=== PATIENT | female | born 2000 | race African-American/Black ===

== ENCOUNTER 2018-10-09 10:08 | Outpatient (CLI) | payer OTHER ==
--- NOTE | 2018-10-09 14:05 | ULT ---
OB ULTRASOUND: HISTORY: anatomy, cervical length. FINDINGS: A single live intrauterine gestation is seen with measurements corresponding to an estimated gestatio nal age of 20 weeks 3 days and WES at 02/23/2019. The estimated weight measures 355 gm or 13 o unces. This corresponds to the 25th percentile by Hadlock criteria. measurements are as follows: BPD 4.77 cm, 20 weeks 3 days HC 18.16 cm, 20 weeks 4 days AC 15.23 cm, 20 weeks 3 days FL 3.34 cm, 20 weeks 3 days heart rate measures 150 b.p.m. Placenta is posteriorly located without evidence of placenta pr evia. CECILIA measures 11.9 cm. There are dilated vessels of the inferior portion of the placenta. The cervical length measures 4.9 cm. A 3-vessel cord, cord insertion, kidneys, bladder, stomach, 4-chamber heart, lateral ventricles , cerebellum, spine, lips/nose, upper and lower extremities are visualized. No definite anomal ies are seen. IMPRESSION: Single live intrauterine of 20 weeks 3 days estimated gestational age and estimated date of delivery at 02/23/2019. POS: SAIRA
== END 2018-10-09 10:09 | disposition home or self-care (01) ==
LOC: SCSULT 10:08
PROVIDERS: ATTEND Family Medicine
DX: Z34.82 Encounter for supervision of other normal pregnancy, second trimester (principal); Z3A.20 20 weeks gestation of pregnancy
CPT/HCPCS: 76805

== ENCOUNTER 2018-12-12 20:07 | Day surgery (SDC) | payer OTHER ==
[2018-12-12 21:20] LABS: Bacteria/HPF 3+ HPF (None Seen); Bilirubin Negative (Negative); Blood, Urine Trace (Negative); Clarity Clear (Clear); Glucose, Urine (Dipstick) Greater than 1000 mg/dL (Negative); Leukocyte 250 Leu/uL (Negative); Nitrite Negative (Negative); Protein, Urine (Dipstick) Negative (Neg-Trace); RBC/HPF 0-3 HPF (0-3); Squamous Epithelial 0-3 HPF (0-3); Urobilinogen Normal mg/dL (Less than 2); WBC/HPF 21-50 HPF (0-3)
[2018-12-12 21:37] LABS: FFN Internal QC Analyzer PASS (PASS); FFN Internal QC Cassette PASS (PASS); Fetal Fibronectin Negative (Negative)
[2018-12-12] MEDS ORDERED: ceFAZolin 1 GM/D5W 1 GM in Premix Bag 1 BAG IVPB SCH (22:00)
[2018-12-12] MEDS ORDERED: Lactated Ringer's 1,000 ML IV SCH (23:45)
--- NOTE | 2018-12-13 03:19 | SS ---
DATE OF ADMISSION: 12/12/2018 DATE OF DISCHARGE: 12/13/2018 REGULAR PHYSICIAN: Rigoberto Browning MD EVALUATING PHYSICIAN: Neto Noble MD CHIEF COMPLAINT: Transfer from [facility], back pain. HISTORY OF PRESENT ILLNESS: Ms. Brand is a 18-year-old black G2, P1-0-0-1 with an estimated date of confinement of 02/23/2019, who presents complaining of back pain for the last 24 hours, as well as additional urinary frequency and urgency. She denies bleeding, rupture of membranes, fever, or chills. Her care has been with Dr. Browning and has been reportedly uncomplicated. PAST OBSTETRICAL HISTORY: Includes one vaginal delivery at term. PAST MEDICAL HISTORY: Frequent UTIs. PAST SURGICAL HISTORY: None. CURRENT MEDICATIONS: vitamins. ALLERGIES: NO KNOWN ALLERGIES. SOCIAL HISTORY: Denies tobacco, alcohol, or drug use. FAMILY HISTORY: Unremarkable. REVIEW OF SYSTEMS: Denies nausea, vomiting, fever, chills, rupture of membranes, or vaginal bleeding. PHYSICAL EXAMINATION: VITAL SIGNS: In triage, her vital signs are stable and she is afebrile. GENERAL: She is pleasant. She is in no acute distress. ABDOMEN: Soft, nontender, and gravid. heart rate tracing is stable. Initially, uterine irritability seen. LABORATORY DATA: fibronectin is negative. Urinalysis shows a specific gravity of 1.009 with 1+ ketones, trace blood, 250 leukocyte esterase. Microscopic shows 0-3 rbc's, 21-50 wbc's with 0-3 squamous cells, and 3+ bacteria. The patient is hydrated with 2 L of lactated Ringer's. She has also been given 1 g of Ancef IV. At the conclusion of this, she had no further irritability and felt much better. ASSESSMENT: 1. 29 and 4/7th week intrauterine . 2. No evidence of labor. 3. Urinary tract infection. PLAN: The patient will be discharged to home. She has no evidence of pyelonephritis at this time. She was given a prescription for Keflex 500 mg one p.o. q.i.d. for 7 days #28 total. She was given complete precautions and states that she has a followup appointment with Dr. Browning within the next 2 weeks. Job ID: [id number]
== END 2018-12-13 01:44 | disposition home or self-care (01) ==
LOC: L&D/OP 20:07
PROVIDERS: ATTEND Family Medicine
DX: O23.43 Unspecified infection of urinary tract in pregnancy, third trimester (principal); B96.1 Klebsiella pneumoniae [K. pneumoniae] as the cause of diseases classified elsewhere; Z3A.29 29 weeks gestation of pregnancy
CPT/HCPCS: 81003; 81015; 82731; 87077; 87086; 87186; 96361; 96365; 99285; J0690

== ENCOUNTER 2019-01-15 20:17 | Day surgery (SDC) | payer OTHER ==
[2019-01-15] MEDS ORDERED: hydrALAZINE 20 MG/ML VIAL SLOW IVP PRN (20:55)
[2019-01-15 21:02] VITALS: BP 109/66; TEMP 98.2; BMI 17.4
[2019-01-15 21:28] LABS: Amnisure Test No Membranes Rupture (No Rupture)
[2019-01-15 21:29] LABS: Amnisure Internal Control QC ACCEPTABLE (ACCEPTABLE)
--- NOTE | 2019-01-16 06:00 | SS ---
DATE OF ADMISSION: 01/15/2019 DATE OF DISCHARGE: 01/15/2019 REGULAR PHYSICIAN: Rigoberto Browning MD EVALUATING PHYSICIAN: Neto Noble MD CHIEF COMPLAINT: Pelvic pressure, possible leakage of fluid. HISTORY OF PRESENT ILLNESS: Ms. Brand is a 18-year-old black G2, P1-0-0-1 with an estimated date of confinement of 02/20/2016, who presents complaining of 24-hour history of pelvic pressure and she also thinks she maybe leaking some fluid. She was seen in Dr. Browning's office today and was told that she was not dilated, but that her cervix was thinner. She had similar complaints when she was seen with him today. PAST OBSTETRICAL HISTORY: Includes one vaginal delivery at term, reportedly uncomplicated. PAST MEDICAL HISTORY: None. PAST SURGICAL HISTORY: None. CURRENT MEDICATIONS: vitamins. ALLERGIES: NO KNOWN ALLERGIES. SOCIAL HISTORY: Denies tobacco, alcohol, or drug use. FAMILY HISTORY: Unremarkable. REVIEW OF SYSTEMS: Denies nausea, vomiting, fever, chills, vaginal bleeding, or decreased movement. PHYSICAL EXAMINATION: VITAL SIGNS: Blood pressure is 109/66, pulse is 88. She is afebrile. GENERAL: She is pleasant, in no distress. ABDOMEN: Soft, nontender, and gravid. AmniSure is obtained and it returns negative. heart rate tracing is reassuring with no decelerations. No regular contractions were seen. Pelvic exam shows the cervix to be closed, posterior, and approximately 60% to 70% effaced. The vertex is presenting. No fluid or discharge is noted. ASSESSMENT: 1. Thirty-four week intrauterine . 2. No evidence of ruptured membranes or labor. PLAN: The patient will be dismissed to home with labor precautions. These were reviewed with her in detail. She voiced understanding of these and her discharge instructions, and was sent home in good condition. Job ID: [id number]
== END 2019-01-15 21:45 | disposition home or self-care (01) ==
LOC: L&D/OP 20:17
PROVIDERS: ATTEND Family Medicine
DX: O99.89 Other specified diseases and conditions complicating pregnancy, childbirth and the puerperium (principal); R10.2 Pelvic and perineal pain; Z3A.34 34 weeks gestation of pregnancy
CPT/HCPCS: 84112; 99283

== ENCOUNTER 2019-02-06 02:29 | Inpatient (IN) | payer OTHER ==
[2019-02-06 03:06] VITALS: BMI 18.3
[2019-02-06] MEDS ORDERED: hydrALAZINE 20 MG/ML VIAL SLOW IVP PRN ×3 (03:31→10:24)
--- NOTE | 2019-02-06 03:34 | PDOC.LDHP ---
Labor and Delivery H&P HPI: Patient of Dr Browning Seen at bedside at 0340 18 yo with CTX. No LOF, no VB, good FM. Denies issues. Review of Systems: comlete ROS performed and as per HPI Current gestational age (weeks): 38 (1 Day) Due date: 02/20/19 Grav: 2 Para: 1 OB History Details: Term in 2016 Current complications: none Abnormal US findings: No Current medications: none Allergies/Adverse Reactions: Allergies Allergy/AdvReac Type Severity Reaction Status Date / Time No Known Allergies Allergy Verified 01/15/19 20:55 Social history: none - Physical Exam Vital signs reviewed and normal: yes (113/78) General: NAD Heart: RRR Lungs: CTAB Abdomen: gravid Extremeties: no edema FHT: category 1 (one isolated small variable noted (X1)) [place] contractions every: 2 CTX in 15 minutes - Vaginal Exam cm dilated: 3 Effacement: 75% Station: -2 - Assessment Latent labor at early term, states GBS neg - Plan Plan: observation in L&D (we will recheck in 2 hrs; continue monitors)
[2019-02-06] MEDS ORDERED: HYDROcodone/Acetaminophen 5/325 mg Tablet PO PRN ×4 (04:43→10:24)
[2019-02-06] MEDS ORDERED: NS / Oxytocin 40 units/1000ml 1,000 ML IV PRN (04:43)
[2019-02-06] MEDS ORDERED: Ondansetron PF 4 MG/2 ML Vial IVP PRN ×3 (04:43→10:24)
[2019-02-06] MEDS ORDERED: Promethazine HCl 25 MG/ML VIAL IM PRN ×2 (04:43→08:17)
[2019-02-06] MEDS ORDERED: Lidocaine 1% (PF) 30 ML VIAL SC PRN (04:43)
[2019-02-06] MEDS ORDERED: Ibuprofen 800 MG TAB PO PRN (04:43)
--- NOTE | 2019-02-06 04:45 | PDOC.EVN ---
Event Note - Event Note Event Note: I will admit due to pain control and she made some cervical change. Dr Browning to be notified
[2019-02-06] MEDS: Butorphanol Tartrate 1 MG/ML VIAL SLOW IVP PRN ×2 (05:44→07:11)
[2019-02-06] MEDS: Lactated Ringer's 1,000 ML IV SCH ×2 (05:44→07:42)
[2019-02-06 06:01] LABS: Hemoglobin 12.5 g/dL (12.0-16.0); Mean Corpuscular HGB CONC 32.2 g/dL (32.0-36.0); Mean Corpuscular Hemoglobin 26.5 pg (25.0-35.0); Mean Corpuscular Volume 82.4 fL (78.0-98.0); Mean Platelet Volume 8.8 fL (7.4-10.4); Platelet Count 120 thou/uL (130-400); RBC Distribution Width 13.4 % (11.5-14.5); Red Blood Cell (RBC) Count 4.69 mill/uL (4.00-5.20); White Blood Cell (WBC) Count 9.7 thou/uL (4.8-10.8)
[2019-02-06 06:37] LABS: Syphilis Antibody Nonreactive (Nonreactive); Syphilis Antibody Index 0.07 S/CO (<1.00 Non-Reactive)
[2019-02-06 06:38] LABS: HBSAg Index 0.16 S/CO (0-0.99); HIV (1/2) Antibody/Antigen Non-Reactive (NonReactive); HIV 1/2 INDEX 0.07 S/CO (<1.00); Hep B Surf Ag Non-Reactive S/CO (NonReactive)
[2019-02-06] MEDS ORDERED: Fentanyl 4 mcg/Bup 0.1% Cadd 100 ML ONE (07:30)
[2019-02-06] MEDS ORDERED: Acetaminophen 325 MG TAB PO PRN (08:17)
[2019-02-06] MEDS ORDERED: diphenhydrAMINE 50 MG/ML VIAL IVP PRN (08:17)
[2019-02-06] MEDS ORDERED: Naloxone HCl 0.4 mg/ml Vial IVP PRN ×2 (08:17)
[2019-02-06] MEDS ORDERED: ePHEDrine/0.9% NaCl/PF SYRINGE 50 mg/10 ml SLOW IVP PRN (08:17)
[2019-02-06] MEDS ORDERED: Lactated Ringer's 500 ML IV PRN (08:17)
[2019-02-06] MEDS ORDERED: Communication Order-Pharmacy FS SCH (08:30)
[2019-02-06] MEDS ORDERED: Fentanyl 4 mcg/Bupivacaine 0.1% Cassette 100 ML EPIDURAL SCH (08:30)
[2019-02-06] MEDS ORDERED: Lanolin Ointment 7 GM TUBE TOP PRN (10:24)
[2019-02-06] MEDS ORDERED: Bisacodyl 10 MG SUPP PR PRN (10:24)
[2019-02-06] MEDS ORDERED: diphenhydrAMINE 25 MG CAP PO PRN (10:24)
[2019-02-06] MEDS ORDERED: Preparation H Ointment 28 GM TUBE PR PRN (10:24)
[2019-02-06] MEDS ORDERED: Benzocaine-Menthol 82.5 ML CAN TOP PRN (10:24)
[2019-02-06] MEDS ORDERED: Milk Of Magnesia 30 ML UDCUP PO PRN (10:24)
[2019-02-06] MEDS ORDERED: Adacel (T-DAP) 0.5 ML SYRINGE IM ONE (10:24)
[2019-02-06] MEDS ORDERED: NS / Oxytocin 40 units/1000ml 1,000 ML IV SCH (10:24)
[2019-02-06] MEDS: Ibuprofen 800 MG TAB PO SCH ×2 (13:56→21:54)
[2019-02-06] MEDS: Ferrous Sulfate 325 MG TAB PO SCH (16:36)
[2019-02-06] MEDS: Docusate Calcium (SURFAK) 240 MG CAP PO SCH (21:54)
[2019-02-07] MEDS: Ibuprofen 800 MG TAB PO SCH ×3 (05:38→21:29)
[2019-02-07 05:44] LABS: Hemoglobin 11.6 g/dL (12.0-16.0); Mean Corpuscular HGB CONC 33.4 g/dL (32.0-36.0); Mean Corpuscular Hemoglobin 27.9 pg (25.0-35.0); Mean Corpuscular Volume 83.4 fL (78.0-98.0); Mean Platelet Volume 9.6 fL (7.4-10.4); Platelet Count 101 thou/uL (130-400); RBC Distribution Width 13.4 % (11.5-14.5); Red Blood Cell (RBC) Count 4.15 mill/uL (4.00-5.20); White Blood Cell (WBC) Count 9.1 thou/uL (4.8-10.8)
[2019-02-07] MEDS ORDERED: Prenatal Vitamin 1 TAB PO SCH (09:00)
[2019-02-07] MEDS: Ferrous Sulfate 325 MG TAB PO SCH ×2 (10:11→18:46)
[2019-02-07] MEDS: Docusate Calcium (SURFAK) 240 MG CAP PO SCH ×2 (10:11→21:29)
[2019-02-08] MEDS: Ibuprofen 800 MG TAB PO SCH (05:25)
[2019-02-08 17:50] VITALS: BP 137/81; TEMP 97.2
== END 2019-02-08 11:00 | disposition home or self-care (01) | DRG 807 ==
LOC: L&D/OP 02:29 → L&D 07:11 → 3SE 11:50
PROVIDERS: ADMIT Family Medicine; ATTEND Family Medicine
PROC: 0KQM0ZZ Repair Perineum Muscle, Open Approach (ICD-10-PCS; principal; 2019-02-06)
PROC: 10E0XZZ Delivery of Products of Conception, External Approach (ICD-10-PCS; 2019-02-06)
DX: O70.1 Second degree perineal laceration during delivery (principal); Z37.0 Single live birth; Z3A.38 38 weeks gestation of pregnancy
CPT/HCPCS: 36415; 85027; 86780; 86850; 86870; 86900; 86901; 87340; 87389; J0595; J2405

== ENCOUNTER 2022-01-21 13:26 | Emergency (ER) | payer OTHER ==
[2022-01-21] MEDS ORDERED: Acetaminophen 500 MG TAB ONE (13:39)
[2022-01-21] MEDS ORDERED: Ibuprofen 200 MG TAB ONE (14:23)
[2022-01-21 15:00] LABS: SARS-CoV-2 NAA Rapid Test DETECTED (NotDetected)
== END 2022-01-21 15:44 | disposition home or self-care (01) ==
LOC: ERS 13:26
DX: U07.1 COVID-19 (principal)
CPT/HCPCS: 99283

== ENCOUNTER 2022-01-22 16:50 | Observation (INO) | payer OTHER, SELFPAY ==
[~2022-01-22 16:50] MED LIST: Iopamidol-370 76% 500 ML 1 ML ONE
[2022-01-22] MEDS ORDERED: Ondansetron PF 4 MG/2 ML Vial ONE (17:00)
[2022-01-22 17:17] LABS: #Lymphocytes 0.8 thou/uL (1.20-3.40); #Monocytes 0.2 thou/uL (0.11-0.59); #Neutrophils 2.9 thou/uL (1.40-6.50); %Basophils 0.9 % (0.0-1.0); %Eosinophils 0.1 % (0.0-10.0); %Lymphocytes 21.1 % (21.0-51.0); %Neutrophils 73.9 % (42.0-75.0); Hemoglobin 14.8 g/dL (12.0-16.0); Mean Corpuscular HGB CONC 33.3 g/dL (32.0-36.0); Mean Corpuscular Hemoglobin 28.8 pg (27.0-31.0); Mean Corpuscular Volume 86.5 fL (78.0-98.0); Platelet Count 120 thou/uL (130-400); RBC Distribution Width 13.1 % (11.5-14.5); Red Blood Cell (RBC) Count 5.13 mill/uL (4.20-5.40); White Blood Cell (WBC) Count 3.9 thou/uL (4.8-10.8)
[2022-01-22 17:26] LABS: BHCG - Serum Negative (NEGATIVE); Pregs Control Background? CLEAR/WHITE (CLR/WHITE); Pregs Control Bar Appear? YES (CONTROL BAR)
[2022-01-22 17:41] LABS: ALT (SGPT) 42 U/L (8-55); AST (SGOT) 32 U/L (5-34); Albumin 4.5 g/dL (3.5-5.0); Alkaline Phosphatase 44 U/L (40-110); Anion Gap 16 mmol/L (10-20); BUN (Urea Nitrogen) 10 mg/dL (7.0-18.7); Bilirubin, Total 0.8 mg/dL (0.2-1.2); Calc. Creatinine Clearance 0 mL/min (70-130); Calcium 9.2 mg/dL (7.8-10.44); Carbon Dioxide 19 mmol/L (22-29); Chloride 105 mmol/L (98-107); Estimated GFR 81; Globulin 3.2 g/dL (2.4-3.5); Glucose 137 mg/dL (70-105); Protein, Total 7.7 g/dL (6.0-8.3); Sodium 137 mmol/L (136-145)
[2022-01-22 17:45] LABS: Potassium 2.7 mmol/L (3.5-5.1)
[2022-01-22] MEDS ORDERED: Potassium Chloride 20 MEQ TAB ONE (18:19)
[2022-01-22] MEDS ORDERED: Acetaminophen 325 MG TAB ONE (18:19)
[2022-01-22 19:48] LABS: Magnesium 1.7 mg/dL (1.6-2.6)
[2022-01-22] MEDS ORDERED: Acetaminophen 325 MG TAB PO PRN ×2 (20:01→20:51)
[2022-01-22] MEDS ORDERED: Ondansetron PF 4 MG/2 ML Vial IVP PRN (20:01)
[2022-01-22 20:13] LABS: Lactic Acid 2.5 mmol/L (0.5-2.2)
[2022-01-22] MEDS ORDERED: Ascorbic Acid 500 mg Chewable Tablet PO SCH (20:49)
[2022-01-22] MEDS ORDERED: Benzonatate 100 MG CAP PO PRN (20:51)
[2022-01-22] MEDS ORDERED: Acetaminophen 650 MG Suppository PR PRN (20:51)
[2022-01-22] MEDS ORDERED: Albuterol 200 PUFF (6.7GM INHALER) INH PRN (20:51)
[2022-01-22 20:59] LABS: Troponin I 0.028 ng/mL (< 0.028)
[2022-01-22] MEDS ORDERED: Zinc Sulfate 220 MG CAP PO SCH (21:00)
[2022-01-22] MEDS ORDERED: Dexamethasone 4 MG TAB PO SCH (21:00)
[2022-01-22] MEDS ORDERED: Guaifenesin DM 100-10/5 ML UDCUP PO PRN (21:38)
[2022-01-22] MEDS: Lactated Ringer's 1,000 ML IV SCH (22:43)
[2022-01-22] MEDS: Famotidine 20 MG TAB PO SCH (22:44)
[2022-01-22 23:18] VITALS: BMI 17.0
[2022-01-22 23:49] LABS: Troponin I 0.018 ng/mL (< 0.028)
[2022-01-23] MEDS ORDERED: Ascorbic Acid 500 mg Chewable Tablet PO SCH (09:00)
[2022-01-23] MEDS ORDERED: Cholecalciferol (Vitamin D3) 400 UNITS TAB PO SCH (09:00)
[2022-01-23] MEDS ORDERED: Enoxaparin Sodium 40 MG/0.4 ML SYRINGE SC SCH ×2 (09:00)
[2022-01-23] MEDS ORDERED: Zinc Sulfate 220 MG CAP PO SCH (09:00)
[2022-01-23] MEDS: Famotidine 20 MG TAB PO SCH (10:10)
[2022-01-23 12:07] VITALS: BP 109/55; TEMP 98.2
[2022-01-23] MEDS: Lactated Ringer's 1,000 ML IV SCH (12:36)
[2022-01-23 12:56] LABS: Potassium 3.8 mmol/L (3.5-5.1)
== END 2022-01-23 15:10 | disposition home or self-care (01) ==
LOC: ERS 16:50 → 2NO 20:01
PROVIDERS: ADMIT Internal Medicine; ATTEND Internal Medicine
DX: U07.1 COVID-19 (principal); R55 Syncope and collapse; E87.6 Hypokalemia
CPT/HCPCS: 36415; 71045; 71275; 80053; 83605; 83735; 84132; 84443; 84484; 84703; 85025; 87040; 93005; 96372; 96374; G0378; J1650; J2405; J7120; J8540; Q9967

== ENCOUNTER 2022-01-24 08:45 | Emergency (ER) | payer OTHER | END 2022-01-24 09:35 | disposition home or self-care (01) | LOC: ERS 08:45 | DX: R11.0 Nausea (principal) | CPT/HCPCS: 99283 ==

== ENCOUNTER 2022-03-15 20:41 | Emergency (ER) | payer OTHER | END 2022-03-15 23:07 | disposition home or self-care (01) | LOC: ERS 20:41 | DX: B34.9 Viral infection, unspecified (principal) | CPT/HCPCS: 87804; 99283 ==

== ENCOUNTER 2022-07-06 18:44 | Emergency (ER) | payer OTHER ==
[2022-07-06] MEDS ORDERED: Proparacaine 0.5% Opth 15 ML BOT ONE (19:04)
[2022-07-06] MEDS ORDERED: Fluorescein Opthalmic Strip ONE (19:06)
== END 2022-07-06 19:24 | disposition home or self-care (01) ==
LOC: ERS 18:44
DX: H10.9 Unspecified conjunctivitis (principal); F17.210 Nicotine dependence, cigarettes, uncomplicated
CPT/HCPCS: 99282

== ENCOUNTER 2022-08-29 21:14 | Emergency (ER) | payer OTHER ==
[2022-08-29 22:05] LABS: Bilirubin Negative (Negative); Blood, Urine Negative (Negative); Clarity Clear (Clear); Glucose, Urine (Dipstick) Normal (Negative); Ketone, Urine Negative (Negative); Leukocyte Negative Leu/uL (Negative); Nitrite Negative (Negative); Protein, Urine (Dipstick) 10 mg/dL (Neg-Trace); Specific Gravity, Urine 1.028 (1.002-1.036); pH, Urine 6.5 (5.0-9.0)
[2022-08-30] MEDS ORDERED: Ketorolac Tromethamine 30 MG/ML VIAL ONE (00:01)
[2022-08-30] MEDS ORDERED: Ondansetron ODT 4 MG TAB ONE (00:01)
[2022-08-30 00:19] LABS: Pregnancy Test - Urine (BHCG) Negative (Negative); Pregu Control Background? CLEAR/WHITE (CLR/WHITE); Pregu Control Bar Appear? YES (CONTROL BAR); Specific Gravity 1.028 (1.002-1.036)
== END 2022-08-30 00:52 | disposition home or self-care (01) ==
LOC: ERS 21:14
DX: M79.10 Myalgia, unspecified site (principal); F17.210 Nicotine dependence, cigarettes, uncomplicated; V89.2XXA Person injured in unspecified motor-vehicle accident, traffic, initial encounter
CPT/HCPCS: 81003; 81025; 96372; 99283; J1885; Q0162

== ENCOUNTER 2023-04-23 15:18 | Emergency (ER) | payer BC ==
[2023-04-23] MEDS ORDERED: Ondansetron PF 4 MG/2 ML Vial ONE (17:07)
[2023-04-23] MEDS ORDERED: Acetaminophen 325 MG TAB ONE (17:21)
== END 2023-04-23 18:42 | disposition home or self-care (01) ==
LOC: ERS 15:18
DX: J11.1 Influenza due to unidentified influenza virus with other respiratory manifestations (principal); F17.210 Nicotine dependence, cigarettes, uncomplicated
CPT/HCPCS: 96361; 96374; J2405

== ENCOUNTER 2024-02-10 15:08 | Emergency (ER) | payer BC, OTHER ==
[2024-02-10 16:02] LABS: #Basophils 0.04 10x3/uL (0.0-0.2); %Basophils 0.5 % (0.0-1.0); %Eosinophils 1.1 % (0.0-10.0); %Lymphocytes 21.6 % (21.0-51.0); %Monocytes 7.2 % (0.0-10.0); %Neutrophils 69.5 % (42.0-75.0); Hematocrit 40.3 % (36.0-47.0); Hemoglobin 13.1 g/dL (12.0-16.0); Mean Corpuscular HGB CONC 32.5 g/dL (32.0-36.0); Mean Corpuscular Hemoglobin 26.6 pg (27.0-31.0); Mean Corpuscular Volume 81.7 fL (78.0-98.0); Mean Platelet Volume 10.1 fL (7.4-10.4); Platelet Count 223 10x3/uL (130-400); RBC Distribution Width 14.8 % (11.5-14.5); Red Blood Cell (RBC) Count 4.93 mill/uL (4.20-5.40)
[2024-02-10 16:21] LABS: ALT (SGPT) 19 U/L (8-55); AST (SGOT) 16 U/L (5-34); Albumin 4.1 g/dL (3.5-5.0); Alkaline Phosphatase 53 U/L (40-110); Anion Gap 11 mmol/L (10-20); BUN (Urea Nitrogen) 13 mg/dL (7.0-18.7); Bilirubin, Total 2.2 mg/dL (0.2-1.2); Calc. Creatinine Clearance 0 mL/min (70-130); Calcium 9.9 mg/dL (7.8-10.44); Carbon Dioxide 24 mmol/L (22-29); Chloride 108 mmol/L (98-107); Estimated GFR 115; Globulin 3.1 g/dL (2.4-3.5); Glucose 102 mg/dL (70-105); Potassium 3.5 mmol/L (3.5-5.1); Protein, Total 7.2 g/dL (6.0-8.3); Sodium 139 mmol/L (136-145)
== END 2024-02-10 17:53 | disposition home or self-care (01) ==
LOC: ERS 15:08
DX: O20.0 Threatened abortion (principal); O99.331 Smoking (tobacco) complicating pregnancy, first trimester; F17.210 Nicotine dependence, cigarettes, uncomplicated; Z3A.01 Less than 8 weeks gestation of pregnancy
CPT/HCPCS: 36415; 76801; 80053; 84702; 85025

== ENCOUNTER 2024-05-10 19:49 | Emergency (ER) | payer OTHER ==
[2024-05-10 20:13] LABS: #Basophils Less than 0.03 10x3/uL (0.0-0.2); %Basophils 0.4 % (0.0-1.0); %Lymphocytes 24.4 % (21.0-51.0); %Monocytes 7.3 % (0.0-10.0); %Neutrophils 66.7 % (42.0-75.0); Hematocrit 34.4 % (36.0-47.0); Hemoglobin 11.2 g/dL (12.0-16.0); Mean Corpuscular HGB CONC 32.6 g/dL (32.0-36.0); Mean Corpuscular Hemoglobin 27.7 pg (27.0-31.0); Mean Corpuscular Volume 84.9 fL (78.0-98.0); Mean Platelet Volume 11.1 fL (7.4-10.4); Platelet Count 171 10x3/uL (130-400); RBC Distribution Width 14.1 % (11.5-14.5); Red Blood Cell (RBC) Count 4.05 mill/uL (4.20-5.40)
[2024-05-10 20:19] LABS: Bacteria/HPF None Seen HPF (None Seen); Bilirubin Negative (Negative); Blood, Urine Negative (Negative); CAUTI Indications for Culture Pelvic or flank pain; Clarity Turbid (Clear); Glucose, Urine (Dipstick) 200 mg/dL (Negative); Ketone, Urine Negative (Negative); Leukocyte 75 Leu/uL (Negative); Nitrite Negative (Negative); Protein, Urine (Dipstick) Negative (Neg-Trace); RBC/HPF 0-3 HPF (0-3); Squamous Epithelial 0-3 HPF (0-3); pH, Urine 6.5 (5.0-9.0)
[2024-05-10 20:20] LABS: Urine Culture Reflex Yes Yes
[2024-05-10 20:28] LABS: ALT (SGPT) 8 U/L (8-55); AST (SGOT) 11 U/L (5-34); Albumin 3.1 g/dL (3.5-5.0); Alkaline Phosphatase 32 U/L (40-110); Anion Gap 11 mmol/L (10-20); BUN (Urea Nitrogen) 10 mg/dL (7.0-18.7); Bilirubin, Total 0.6 mg/dL (0.2-1.2); Calc. Creatinine Clearance 0 mL/min (70-130); Calcium 8.6 mg/dL (7.8-10.44); Carbon Dioxide 20 mmol/L (22-29); Chloride 110 mmol/L (98-107); Estimated GFR 126; Globulin 3.2 g/dL (2.4-3.5); Glucose 70 mg/dL (70-105); Potassium 3.9 mmol/L (3.5-5.1); Protein, Total 6.3 g/dL (6.0-8.3); Sodium 137 mmol/L (136-145)
[2024-05-10] MEDS ORDERED: cefTRIAXone (ROCEPHIN) 1 GM VIAL ONE (20:45)
[2024-05-10] MEDS ORDERED: Lidocaine 1% PF 5 ML VIAL ONE (20:45)
== END 2024-05-10 23:43 | disposition home or self-care (01) ==
LOC: ERS 19:49
DX: O23.42 Unspecified infection of urinary tract in pregnancy, second trimester (principal); O99.332 Smoking (tobacco) complicating pregnancy, second trimester; N39.0 Urinary tract infection, site not specified; F17.210 Nicotine dependence, cigarettes, uncomplicated; Z3A.17 17 weeks gestation of pregnancy; Z55.6 Problems related to health literacy
CPT/HCPCS: 36415; 76815; 80053; 81001; 83605; 85025; 87077; 87086; 87186; 96372; J0696